=== PATIENT | female | born 1980 | race Caucasian/White ===

== ENCOUNTER 2017-04-23 15:22 | Emergency (ER) | payer OTHER ==
--- NOTE | 2017-04-23 16:43 | EDPHY ---
H & P Time Seen by Provider: 04/23/17 16:01 HPI/ROS: CHIEF COMPLAINT: Head pressure, neck pressure HISTORY OF PRESENT ILLNESS: The patient is a 37-year-old female who presents emergency department ongoing headache and neck pressure. Patient states her symptoms started 2 weeks ago. She was described primarily left-sided head pain. She also developed left hand numbness. She went to urgent care and subsequently had an MRI on . She received the results today and was told it was normal. However she has continued to have worsening left-sided headache. She describes neck "tightness and pressure." "It is like a tourniquet." She has no weakness. She denies visual change. No recent trauma. REVIEW OF SYSTEMS: My complete review of systems is negative except as mentioned in the HPI. Past Medical/Surgical History: Includes ectopic x2 Past surgical history: Ectopic Social history: Patient smokes. The patient uses THC Smoking Status: Current every day smoker Physical Exam: Vitals noted GENERAL: Well-appearing, in no acute distress, alert. HEENT: Eyes normal to inspection, normal pharynx, no signs of dehydration. No Yessi's. NECK: No thyromegaly, no lymphadenopathy, supple. RESPIRATORY: Clear to auscultation bilaterally, no rales, rhonchi or wheezing. CVS: Regular rate and rhythm, no rubs, murmurs, or gallops. ABDOMEN: Soft, nontender, nondistended, no organomegaly. BACK: Normal to inspection, no CVA tenderness. SKIN: Normal color, no rash, warm, dry. No pallor. EXTREMITIES: No pedal edema, no calf tenderness, no Homans sign or cords, no joint swelling. NEURO/PSYCH: Higher functions: Alert and Oriented x3. Normal speech and cognition. Normal mood and affect. Cranial nerves: Normal as tested. Cerebellar: Normal as tested. Good finger to nose, good [id number], normal gait. Peripheral exam: Normal motor exam. Normal sensation. Constitutional: Initial Vital Signs Temperature (C) 36.9 C 04/23/17 15:27 Heart Rate 96 04/23/17 15:27 Respiratory Rate 20 04/23/17 15:27 Blood Pressure 100/84 H 04/23/17 15:27 O2 Sat (%) 99 04/23/17 15:27 O2 Delivery Mode Room Air Allergies/Adverse Reactions: Penicillins Allergy (Verified 04/23/17 15:26) Home Medications: Medication Instructions Recorded Aspirin 325 mg (*) 04/23/17 Xanax 04/23/17 Medical Decision Making - Diagnostics Imaging Results: Imaging Impressions Head CT 04/23/17 16:36 Impression: Normal. Findings and recommendations discussed with INOCENTE SNYDER at 1810 hour, . Final report concurs with initial preliminary interpretation. Head CTA 04/23/17 16:36 Impression: Normal. Findings and recommendations discussed with INOCENTE SNYDER at 1815 hour, . Final report concurs with initial preliminary interpretation. Neck CTA 04/23/17 16:36 Impression: Normal. No dissection. Findings and recommendations discussed with INOCENTE SNYDER at 1815 hour, . Final report concurs with initial preliminary interpretation. Note: All stenoses are calculated using NASCET Criteria. ED Course/Re-evaluation: In the emergency department I discussed possible etiologies with the patient. I answered all her questions. I discussed the case with Dr. Roxanna Colby from Radiology. She recommended CT of the head without contrast. She also recommended CT angio of the head neck. I discussed with the patient. I answered all her questions. Patient was recheck while here. She had no new complaints. A CT of the head without contrast, CT angio head neck: Please refer the dictated report by Dr. Roxanna Colby. No acute disease noted. I discussed the results with the patient. She confirms that she was told her MRI was negative except for incidental finding of a mucoid cyst. I answered all her questions. Due to the patient's complaints she will follow up with Neurology. She was given warnings prior to leaving. She will return with worsening symptoms. Differential Diagnosis: My differential includes but is not limited to dissection, aneurysm, subarachnoid hemorrhage, subdural hematoma, epidural hematoma, ischemic CVA, hemorrhagic CVA, mass, malignancy - Data Points Laboratory Results: Laboratory Results 04/23/17 16:56 04/23/17 16:56 04/23/17 04/23/17 04/23/17 16:56 16:56 16:56 WBC 6.68 10^3/uL 10^3/uL (3.80-9.50) RBC 4.55 10^6/uL 10^6/uL (4.18-5.33) Hgb 14.6 g/dL g/dL (12.6-16.3) Hct 42.4 % % (38.0-47.0) MCV 93.2 fL fL (81.5-99.8) MCH 32.1 pg pg (27.9-34.1) MCHC 34.4 g/dL g/dL (32.4-36.7) RDW 12.8 % % (11.5-15.2) Plt Count 220 10^3/uL 10^3/uL (150-400) MPV 10.8 fL fL (8.7-11.7) Neut % (Auto) 62.8 % % (39.3-74.2) Lymph % (Auto) 27.8 % % (15.0-45.0) [place] % (Auto) 6.0 % % (4.5-13.0) Eos % (Auto) 2.5 % % (0.6-7.6) Baso % (Auto) 0.6 % % (0.3-1.7) Nucleat RBC Rel Count 0.0 % % (0.0-0.2) Absolute Neuts (auto) 4.19 10^3/uL 10^3/uL (1.70-6.50) Absolute Lymphs (auto) 1.86 10^3/uL 10^3/uL (1.00-3.00) Absolute Monos (auto) 0.40 10^3/uL 10^3/uL (0.30-0.80) Absolute Eos (auto) 0.17 10^3/uL 10^3/uL (0.03-0.40) Absolute Basos (auto) 0.04 10^3/uL 10^3/uL (0.02-0.10) Absolute Nucleated RBC 0.00 10^3/uL 10^3/uL (0-0.01) Immature Gran % 0.3 % % (0.0-1.1) Immature Gran # 0.02 10^3/uL 10^3/uL (0.00-0.10) Sodium 141 mEq/L mEq/L (134-144) Potassium 4.6 mEq/L mEq/L (3.5-5.2) Chloride 105 mEq/L mEq/L (97-110) Carbon Dioxide 22 mEq/l mEq/l (22-31) Anion Gap 14 mEq/L mEq/L (8-16) BUN 18 mg/dL mg/dL (7-23) Creatinine 0.8 mg/dL mg/dL (0.6-1.0) Estimated GFR > 60 Glucose 90 mg/dL mg/dL (70-100) Calcium 9.7 mg/dL mg/dL (8.5-10.4) Beta HCG, Qual NEGATIVE Departure - Departure Disposition: Home, Routine, Self-Care Clinical Impression: Neck pain Headache Qualifiers: Headache type: unspecified Headache chronicity pattern: acute headache Intractability: not intractable Qualified Code(s): R51 - Headache Condition: Good Instructions: Acute Headache (ED), Acute Neck Pain (ED) Additional Instructions: Your CT imaging of your head and neck were normal. You been given follow-up with Neurology for your ongoing symptoms. Return with worsening symptoms. Referrals: Minor Grey DO [Medical Doctor] - 5-7 days, call for appt. CELESTINO ADLER [Other] - 5-7 days, call for appt.
[2017-04-23 17:06] LABS: % IMMATURE GRANULYOCYTES 0.3 % (0.0-1.1); ABSOLUTE IMMATURE GRANULOCYTES 0.02 10^3/uL (0.00-0.10); ADD DIFF? NO; ADD MORPH? NO; ADD SCAN? NO; ATYPICAL LYMPHOCYTE FLAG 10 (0-99); FRAGMENT RBC FLAG 30 (0-99); HEMATOCRIT 42.4 % (38.0-47.0); HEMOGLOBIN 14.6 g/dL (12.6-16.3); LEFT SHIFT FLG 0 (0-99); LIPEMIA HEMOLYSIS FLAG 90 (0-99); MEAN CELL HEMOGLOBIN 32.1 pg (27.9-34.1); MEAN CELL HEMOGLOBIN CONCENTR. 34.4 g/dL (32.4-36.7); MEAN CELL VOLUME 93.2 fL (81.5-99.8); MEAN PLATELET VOLUME 10.8 fL (8.7-11.7); PLATELET CLUMPS FLAG 0 (0-99); PLATELET COUNT 220 10^3/uL (150-400); RED BLOOD CELL COUNT 4.55 10^6/uL (4.18-5.33); RED CELL DISTRIBUTION WIDTH 12.8 % (11.5-15.2)
[2017-04-23 17:28] LABS: ANION GAP 14 mEq/L (8-16); CALCIUM 9.7 mg/dL (8.5-10.4); CARBON DIOXIDE 22 mEq/l (22-31); CHLORIDE 105 mEq/L (97-110); CREATININE 0.8 mg/dL (0.6-1.0); GLOMERULAR FILTRATION RATE > 60; GLUCOSE 90 mg/dL (70-100); POTASSIUM 4.6 mEq/L (3.5-5.2); SODIUM 141 mEq/L (134-144)
[2017-04-23] MEDS ORDERED: IOPAMIDOL (ISOVUE 370) 100 ML BTL IV ONE (17:30)
[2017-04-23 18:02] VITALS: BP 103/67
[2017-04-23 18:30] VITALS: PULSE 70; RESP 14; TEMP 98.2; O2SAT 98
== END 2017-04-23 18:29 | disposition home or self-care (01) ==
DX: M54.2 Cervicalgia (principal); R51 Headache; F17.200 Nicotine dependence, unspecified, uncomplicated
CPT/HCPCS: Q9967